=== PATIENT | male | born 1975 | race Caucasian/White ===

== ENCOUNTER → 2020-05-25 | Outpatient (CLI) | payer BC ==
[~2020-05-25] MED LIST: FLEXERIL10 MG PO; MOTRIN800 MG PO
== END | disposition home or self-care (01) ==
LOC: COVID19 15:14
PROVIDERS: ATTEND Family Medicine
DX: R09.81 Nasal congestion (principal); Z20.828 Contact with and (suspected) exposure to other viral communicable diseases

== ENCOUNTER → 2024-04-14 | Outpatient (CLI) | payer BC ==
[2024-04-15 05:07] LABS: HEPATITIS B SURFACE AG Negative (Negative)
== END | disposition home or self-care (01) ==
LOC: LAB 10:20
PROVIDERS: ATTEND Family Medicine
DX: Z20.2 Contact with and (suspected) exposure to infections with a predominantly sexual mode of transmission (principal)